=== PATIENT | female | born 1985 | race Two or more races ===

== ENCOUNTER 2022-07-15 19:04 | Emergency (ER) | payer OTHER ==
[~2022-07-15] VITALS: Ht 160 cm; Wt 70.0 kg
[2022-07-15] MEDS ORDERED: ACYC1CAP23 PO (22:18)
[2022-07-15] MEDS ORDERED: PRED20TA2 PO (22:18)
[2022-07-16 01:31] VITALS: BP 121/76
== END 2022-07-16 04:10 | disposition home or self-care (01) ==
LOC: ER 19:04
DX: G51.0 Bell's palsy (principal)